=== PATIENT | female | born 1995 | race Caucasian/White ===

== ENCOUNTER 2017-08-31 00:35 | Emergency (ER) | payer SELFPAY ==
[~2017-08-31] VITALS: Ht 157.5 cm; Wt 83.6 kg
[2017-08-31 00:43] VITALS: Ht 157.5 cm; Wt 83.6 kg
[2017-08-31 02:19] VITALS: BP 106/56
== END 2017-08-31 02:19 | disposition home or self-care (01) ==
LOC: ED 00:35
DX: R07.9 Chest pain, unspecified (principal)
CPT/HCPCS: J1885; Q0092